=== PATIENT | female | born 1995 | race Caucasian/White ===

== ENCOUNTER 2016-09-12 01:40 | Emergency (ER) | payer OTHER ==
[~2016-09-12] VITALS: Ht 152.4 cm; Wt 76.5 kg
[2016-09-12 03:34] LABS: ADD MIUA? YES; BILIRUBIN NEGATIVE; BLOOD SMALL; COLOR YELLOW ((YELLOW)); GLUCOSE (STRIP) NEGATIVE; KETONES NEGATIVE; LEUKOCYTES NEGATIVE; NITRITE NEGATIVE; PH, URINE 6.5 (5-8); PROTEIN (STRIP) NEGATIVE; SPECIFIC GRAVITY 1.023 (1.000-1.030); UROBILINOGEN 0.2 MG/DL (0.2-1.0)
[2016-09-12 03:34] LABS: MCH 29.1 PG (29.0-34.0); MCV 85.6 FL (83-99); MEAN PLAT.VOLUME 10.7 uM^3 (9.5-12.4); PLATELET COUNT 310 K/uL (156-360); RBC DIS.WIDTH-SD 43.3 % (39-53); RED BLOOD COUNT 5.26 M/uL (3.80-5.20); WHITE BLOOD COUNT 10.4 K/uL (4.1-10.2)
[2016-09-12 03:47] LABS: CHLORIDE 109 mEq/L (99-109); POTASSIUM 4.2 mEq/L (3.7-5.4); SODIUM 140 mEq/L (136-147)
[2016-09-12 03:49] LABS: GLUCOSE 111 mg/dL (70-99)
[2016-09-12 03:50] LABS: ANION GAP 16 MEQ/L (2-14)
[2016-09-12 03:53] LABS: GFR ESTIMATE (CALCULATED) > 59 mL/min/
[2016-09-12 03:54] LABS: UREA NITROGEN (BUN) 12 mg/dL (9-23)
[2016-09-12 03:55] LABS: CREATINE KINASE 62 IU/L (1-294); TOTAL CK 62 IU/L (1-294)
[2016-09-12 04:01] LABS: QUANTITATIVE HCG < 4.0 MIU/ML
[2016-09-12 04:02] LABS: CK-MB 0.7 ng/mL (0.0-4.9)
[2016-09-12 04:05] LABS: CASTS NONE SEEN /LPF; EPITHELIAL CELLS 1+; MUCUS NONE SEEN; RED BLOOD CELLS NONE SEEN /HPF (0-5); WHITE BLOOD CELLS RARE /HPF (0-5)
[2016-09-12 04:06] LABS: BACTERIA 1+; CRYSTALS NONE SEEN; UCUL ADDED? NO
[2016-09-12] MEDS ORDERED: PEPCID20 MG PO (04:19)
[2016-09-12 04:59] VITALS: BP 128/89
== END 2016-09-12 04:59 | disposition home or self-care (01) ==
LOC: EME 01:40
PROVIDERS: Emergency Medicine
DX: M79.1 Myalgia (principal); T38.0X5A Adverse effect of glucocorticoids and synthetic analogues, initial encounter
CPT/HCPCS: 80048; 81003; 82550; 82553; 84702; 85027; 87651 90; 99281; 99285

== ENCOUNTER → 2017-01-18 | Outpatient (CLI) | payer OTHER ==
[~2017-01-18] VITALS: Ht 152.4 cm; Wt 70.4 kg
[~2017-01-18] MED LIST: PEPCID20 MG PO; SINGULAIR10 MG PO; VENTOLIN HFA18 GM IH; ZOLOFT100 MG PO
[2017-01-18 12:44] LABS: INTERNAL CONTROL VALID? YES
== END | disposition home or self-care (01) ==
LOC: AMB 11:07
PROVIDERS: Anesthesiology
DX: K29.70 Gastritis, unspecified, without bleeding (principal); K63.5 Polyp of colon; K64.8 Other hemorrhoids; K62.5 Hemorrhage of anus and rectum; K58.9 Irritable bowel syndrome, unspecified; F32.9 Major depressive disorder, single episode, unspecified; F20.9 Schizophrenia, unspecified; Z81.8 Family history of other mental and behavioral disorders; Z88.6 Allergy status to analgesic agent; Z88.5 Allergy status to narcotic agent; Z88.0 Allergy status to penicillin
CPT/HCPCS: 84703; 88305; 88342 TC; J2250

== ENCOUNTER 2017-04-13 13:05 | Emergency (ER) | payer OTHER ==
[~2017-04-13] VITALS: Ht 152.4 cm; Wt 71.8 kg
[2017-04-13 14:07] LABS: ADD MIUA? YES; BILIRUBIN NEGATIVE; BLOOD MODERATE; COLOR YELLOW ((YELLOW)); GLUCOSE (STRIP) NEGATIVE; KETONES NEGATIVE; LEUKOCYTES NEGATIVE; NITRITE NEGATIVE; PROTEIN (STRIP) NEGATIVE; SPECIFIC GRAVITY 1.011 (1.000-1.030); UROBILINOGEN 0.2 MG/DL (0.2-1.0)
[2017-04-13 14:09] LABS: BACTERIA NONE SEEN /HPF; EPITHELIAL CELLS RARE /HPF; MUCUS NONE SEEN /LPF; RED BLOOD CELLS 0-5 /HPF (0-5); UCUL ADDED? NO; WHITE BLOOD CELLS 0-5 /HPF (0-5)
[2017-04-13 14:15] LABS: AMPHETAMINE NEGATIVE (500 ng/mL); BARBITURATES NEGATIVE (200 ng/mL); BENZODIAZEPINES NEGATIVE (150 ng/mL); COCAINE NEGATIVE (150 ng/mL); INTERNAL CONTROLS VALID? YES; METHADONE NEGATIVE (200 ng/mL); METHAMPHETAMINE NEGATIVE (500 ng/mL); OPIATES (MORPHINE) NEGATIVE (100 ng/mL); OXYCODONE NEGATIVE (100 ng/mL); PHENCYCLIDINE NEGATIVE (25 ng/mL); PROPOXYPHENE NEGATIVE (300 ng/mL); THC CANNABINOIDS NEGATIVE (50 ng/mL); TRICYCLIC ANTIDEPRESSANTS NEGATIVE (300 ng/mL)
[2017-04-13 14:23] LABS: HEMATOCRIT 42.7 % (36.0-46.0); MCH 29.3 PG (29.0-34.0); MCHC 33.5 G/DL (30.0-36.0); MCV 87.5 FL (83-99); MEAN PLAT.VOLUME 10.5 uM^3 (9.5-12.4); PLATELET COUNT 256 K/uL (156-360); RBC DIS.WIDTH-CV 12.9 % (11.8-14.6); RBC DIS.WIDTH-SD 41.4 % (39-53); RED BLOOD COUNT 4.88 M/uL (3.80-5.20); WHITE BLOOD COUNT 9.9 K/uL (4.1-10.2)
[2017-04-13 14:33] LABS: CHLORIDE 106 mEq/L (99-109); POTASSIUM 3.8 mEq/L (3.7-5.4); SODIUM 141 mEq/L (136-147)
[2017-04-13 14:35] LABS: GLUCOSE 85 mg/dL (70-99)
[2017-04-13 14:36] LABS: ANION GAP 12 MEQ/L (2-14)
[2017-04-13 14:37] LABS: TOTAL BILIRUBIN 0.5 mg/dL (0.0-1.0)
[2017-04-13 14:38] LABS: ALKALINE PHOSPHATASE 85 IU/L (3-129); SERUM ETHYL ALCOHOL < 10 mg/dL
[2017-04-13 14:39] LABS: GFR ESTIMATE (CALCULATED) > 59 mL/min/
[2017-04-13 14:40] LABS: UREA NITROGEN (BUN) 12 mg/dL (9-23)
[2017-04-13 14:47] LABS: QUANTITATIVE HCG < 4.0 MIU/ML
[2017-04-13 14:51] VITALS: BP 130/78
== END 2017-04-13 14:58 | disposition home or self-care (01) ==
LOC: EME 13:05
PROVIDERS: Emergency Medicine
DX: F43.23 Adjustment disorder with mixed anxiety and depressed mood (principal); J45.909 Unspecified asthma, uncomplicated; F17.200 Nicotine dependence, unspecified, uncomplicated; Z87.442 Personal history of urinary calculi; Z88.0 Allergy status to penicillin; Z88.6 Allergy status to analgesic agent
CPT/HCPCS: 80053; 81003; 84702; 85027; 90839; 99281; 99284; G0480

== ENCOUNTER 2018-02-01 12:46 | Emergency (ER) | payer OTHER ==
[~2018-02-01] VITALS: Ht 152.4 cm; Wt 74.5 kg
[2018-02-01] MEDS ORDERED: ULTRAM50 MG PO (13:37)
[2018-02-01 13:47] VITALS: BP 110/88
== END 2018-02-01 13:58 | disposition home or self-care (01) ==
LOC: EME 12:46
DX: S90.121A Contusion of right lesser toe(s) without damage to nail, initial encounter (principal); S91.104A Unspecified open wound of right lesser toe(s) without damage to nail, initial encounter; W23.1XXA Caught, crushed, jammed, or pinched between stationary objects, initial encounter; Z88.5 Allergy status to narcotic agent; Z88.0 Allergy status to penicillin
CPT/HCPCS: 73630; 99281; 99283